=== PATIENT | female | born 2000 | race Caucasian/White ===

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

== ENCOUNTER 2020-01-20 20:19 | Emergency (ER) | payer OTHER ==
[~2020-01-20] VITALS: Ht 154.9 cm; Wt 104.3 kg
[~2020-01-20 20:19] MED LIST changes: +FLEXERIL PO; +OXYCODONE HCL5 MG PO
[2020-01-20 20:43] LABS: URINE BILIRUBIN NEGATIVE (Negative); URINE BLOOD NEGATIVE (Negative); URINE CLARITY CLEAR; URINE COLOR YELLOW; URINE GLUCOSE-RANDOM NEGATIVE (Negative); URINE KETONES NEGATIVE (Negative); URINE LEUKOCYTES-REFLEX NEGATIVE (Negative); URINE NITRITE-REFLEX NEGATIVE (Negative); URINE PROTEIN NEGATIVE (Negative); URINE SPECIFIC GRAVITY >= 1.030 (1.005-1.030); URINE UROBILINOGEN 0.2 E.U./dl (0.2-1.0)
[2020-01-20 20:58] LABS: ABSOLUTE BASOPHILS 0.1 thou/uL (0.0-0.2); ABSOLUTE EOSINOPHILS 0.1 thou/uL (0.0-0.7); ABSOLUTE LYMPHOCYTES 2.5 thou/uL (0.8-5.3); ABSOLUTE MONOCYTES 0.6 thou/uL (0.0-1.2); ABSOLUTE NEUTROPHILS 5.2 thou/uL (1.6-8.1); BASOPHILS 1.1 %; EOSINOPHILS 1.6 %; HEMATOCRIT 40.2 % (37.0-47.0); HEMOGLOBIN 13.7 gm/dL (12.0-15.0); LYMPHOCYTES 29.2 %; MCHC 33.9 g/dL (28.0-37.0); MCV 82.5 fL (80.0-100.0); MONOCYTES 6.6 %; MPV 7.1 fl. (7.2-11.1); NUCLEATED RBCS 0 /100WBC; PLATELET COUNT* 313 thou/uL (150-400); POLYS 61.5 %; RBC 4.87 mil/uL (4.20-5.00); RDW-CV 13.2 % (10.5-14.5); WBC 8.5 thou/uL (4.0-11.0)
[2020-01-20 21:08] LABS: CALCIUM 9.2 mg/dL (8.5-10.1); CREATININE 0.9 mg/dL (0.6-1.3)
[2020-01-20 21:09] LABS: APTT 28.3 Seconds (25.0-31.3); PROTIME 10.2 Seconds (9.20-11.50)
[2020-01-20 21:13] LABS: ALBUMIN 3.7 g/dL (3.4-5.0); TOTAL BILIRUBIN 0.3 mg/dL (<0.1-1.0); TOTAL PROTEIN 7.3 g/dL (6.4-8.2)
[2020-01-21 00:09] VITALS: BP 141/97
== END 2020-01-21 00:10 | disposition home or self-care (01) ==
LOC: M.ERS 20:19
PROVIDERS: Nurse Practitioner Family
DX: R10.31 Right lower quadrant pain (principal); Z90.49 Acquired absence of other specified parts of digestive tract; Z98.890 Other specified postprocedural states

== ENCOUNTER 2021-06-25 19:26 | Emergency (ER) | payer OTHER ==
[~2021-06-25] VITALS: Ht 154.9 cm; Wt 90.7 kg
[2021-06-25 19:34] VITALS: BP 143/95
== END 2021-06-25 22:08 | disposition left against medical advice (07) ==
LOC: M.ERS 19:26
DX: U07.1 COVID-19 (principal); M54.5 Low back pain; Z53.21 Procedure and treatment not carried out due to patient leaving prior to being seen by health care provider

== ENCOUNTER 2021-07-02 16:38 | Emergency (ER) | payer OTHER ==
[~2021-07-02] VITALS: Ht 154.9 cm; Wt 90.7 kg
[2021-07-02 18:26] LABS: ABSOLUTE LYMPHOCYTES 1.6 thou/uL (0.8-5.3); ABSOLUTE MONOCYTES 0.5 thou/uL (0.0-1.2); ABSOLUTE NEUTROPHILS 3.4 thou/uL (1.6-8.1); BASOPHILS 0.5 %; EOSINOPHILS 0.1 %; MCH 29.2 pg (26.0-34.0); MCHC 34.2 g/dL (28.0-37.0); MCV 85.2 fL (80.0-100.0); MONOCYTES 9.3 %; MPV 6.9 fl. (7.2-11.1); NUCLEATED RBCS 0 /100WBC; PLATELET COUNT* 210 thou/uL (150-400); POLYS 61.1 %; RBC 4.81 mil/uL (4.20-5.00); WBC 5.6 thou/uL (4.0-11.0)
[2021-07-02 18:35] LABS: CALCIUM 8.7 mg/dL (8.5-10.1); POTASSIUM 3.9 mmol/L (3.5-5.1)
[2021-07-02 18:40] LABS: ALBUMIN 3.3 g/dL (3.4-5.0); TOTAL BILIRUBIN 0.4 mg/dL (<0.1-1.0); TOTAL PROTEIN 7.4 g/dL (6.4-8.2)
[2021-07-02] MEDS ORDERED: DOXYCYCLINE 10100 MG PO (20:09)
[2021-07-02] MEDS ORDERED: PROAIR HFA8.5 GM INH (20:09)
[2021-07-02] MEDS ORDERED: TESSALON PERLE100 MG PO (20:09)
[2021-07-02] MEDS ORDERED: PREDNISONE 20 M20 MG PO (20:09)
[2021-07-02 20:21] VITALS: BP 129/62
== END 2021-07-02 20:21 | disposition home or self-care (01) ==
LOC: M.ERS 16:38
PROVIDERS: Physician Assistant
DX: U07.1 COVID-19 (principal); J18.9 Pneumonia, unspecified organism; Z90.49 Acquired absence of other specified parts of digestive tract; Z98.890 Other specified postprocedural states